=== PATIENT | male | born 1980 | race Caucasian/White ===

== ENCOUNTER 2024-01-16 22:47 | Emergency (ER) | payer SELFPAY ==
[2024-01-16 22:54] VITALS: BP 135/75; PULSE 80; RESP 18; TEMP 98.8; BMI 28.7
== END 2024-01-17 00:26 | disposition home or self-care (01) ==
LOC: JER 22:47
DX: S93.402A Sprain of unspecified ligament of left ankle, initial encounter (principal); X50.1XXA Overexertion from prolonged static or awkward postures, initial encounter; Y93.61 Activity, american tackle football
CPT/HCPCS: 73610-TC-LT-FY; 73630-TC-LT; 99283-25